=== PATIENT | female | born 1970 | race Caucasian/White ===

== ENCOUNTER 2018-10-15 09:46 | Observation (INO) | payer OTHER ==
[~2018-10-15 09:46] MED LIST: HYDROmorphone 2 MG/ML VIAL IV PRN; IV RINGERS,LACTATED 1000ML 1,000 ML IV SCH; LIDOCAINE 1% PF 2 ML VIAL. ID PRN; MORPHINE SULFATE 2 MG/ML VIAL. IV PRN; ONDANSETRON PF 4 MG/2 ML VIAL. IV PRN; PROCHLORPERAZINE 10 MG/2 ML VIAL. IV PRN; fentaNYL PF VIAL 100 MCG/2 ML VIAL IV PRN
[2018-10-15] MEDS ORDERED: LEVO175T5 PO (10:31)
[2018-10-15] MEDS ORDERED: RANI300C PO (10:32)
[2018-10-15] MEDS ORDERED: GUAI237L83 PO (10:33)
[2018-10-15 11:25] LABS: BASO # 0.1 x10^3/uL (0.0-0.2); BASO % 1 % (0-3); EOS # 0.1 x10^3/uL (0.0-0.7); EOS % 2 % (0-3); HEMATOCRIT 40.5 % (36.0-47.0); HEMOGLOBIN 13.9 g/dL (12.0-15.5); LYMPH # 2.2 x10^3/uL (1.0-4.8); LYMPH % 27 % (24-48); MEAN CORPUSCULAR HEMOGLOBIN 32 pg (25-35); MEAN CORPUSCULAR HGB CONC 34 g/dL (31-37); MEAN CORPUSCULAR VOLUME 94 fL (79-100); MONO # 0.7 x10^3/uL (0.0-1.1); MONO % 9 % (0-9); NEUT # 5.1 x10^3uL (1.8-7.7); NEUT % 62 % (31-73); PLATELET COUNT 260 x10^3/uL (140-400); RED BLOOD COUNT 4.29 x10^6/uL (3.50-5.40); RED CELL DISTRIBUTION WIDTH 13.2 % (11.5-14.5); WHITE BLOOD COUNT 8.3 x10^3/uL (4.0-11.0)
[2018-10-15] MEDS ORDERED: ceFAZolin 2GM PREMIX 2 GM/50 ML BAG IV ONE (12:00)
[2018-10-15] MEDS ORDERED: fentaNYL PF VIAL 100 MCG/2 ML VIAL ONE (12:31)
[2018-10-15] MEDS ORDERED: LIDOCAINE 2% PF 5 ML VIAL. ONE (12:31)
[2018-10-15] MEDS ORDERED: PROPOFOL 20 ML IV ONE ×2 (12:31→14:10)
[2018-10-15] MEDS ORDERED: DEXAMETHASONE SOD PHOS 4 MG/ML VIAL ONE (12:31)
[2018-10-15] MEDS ORDERED: SEVOFLURANE 31 TO 60 MINUTES. IH ONE (12:31)
[2018-10-15] MEDS ORDERED: SEVOFLURANE 61 TO 120 MINUTES. IH ONE (12:31)
[2018-10-15] MEDS ORDERED: MIDAZOLAM HCL/PF 2 MG/2 ML VIAL. ONE (12:31)
[2018-10-15] MEDS ORDERED: KETOROLAC 30 MG/ML INJ FOR OR. INJ ONE (12:32)
[2018-10-15] MEDS ORDERED: ONDANSETRON PF 4 MG/2 ML VIAL. ONE (12:32)
[2018-10-15] MEDS ORDERED: LIDOCAINE 1%/EPI 1:100,000 20 ML VIAL. ONE ×2 (12:43→13:23)
--- NOTE | 2018-10-15 14:54 | PDOC ---
BRIEF OPERATIVE NOTE Date: Oct 15, 2018 Pre-Op Diagnosis 1. DONA 2. Cystocele Post-Op Diagnosis Same Procedure Performed 1. Bladder SLing 2. Anterior COlporrhaphy Surgeon Dr. Laughlin Rice Dryer Mechanic Lidia Anesthesia Type: General Blood Loss 25 ml Specimens Obtained none Findings DONA and cystocele Complications none Operative Note see dictation JIMMIE LAUGHLIN Jr, MD Oct 15, 2018 14:53
--- NOTE | 2018-10-15 14:55 | DISCH ---
DISCHARGE INSTRUCTIONS Condition on Discharge Condition on Discharge: Stable Activity After Discharge Activity Instructions for Disc: Activity as tolerated Lifting Instructions after Dis: No heavy lifting Driving Instructions after Dis: Do not drive today Diet after Discharge Diet after Discharge: Regular Contacting the [facility] after DC Call your doctor for: Concerns you may have Follow-Up Follow up with: Dr. Cr in 2 weeks. JIMMIE CR Jr, MD Oct 15, 2018 14:55
--- NOTE | 2018-10-15 15:07 | OP ---
DATE OF SURGERY: PREOPERATIVE DIAGNOSES: 1. Stress urinary incontinence. 2. Cystocele. POSTOPERATIVE DIAGNOSES: 1. Stress urinary incontinence. 2. Cystocele. PROCEDURE: 1. Bladder sling. 2. Anterior colporrhaphy. SURGEON: Curly Samaniego MD LOGGING OPERATIONS INSPECTOR: First Lesly Murillo. ANESTHESIA: GETA. ESTIMATED BLOOD LOSS: 25 mL. COMPLICATIONS: None. FINDINGS: Stress urinary incontinence and cystocele. SUMMARY: A 47-year-old patient with a long history of stress urinary incontinence. The patient was examined and found to also have cystocele, stage 3. The patient was counseled on benefits, risks and expectations of surgical treatment in the form of suburethral bladder sling and anterior colporrhaphy. She voiced clear understanding to proceed. DESCRIPTION OF PROCEDURE: The patient was taken to surgery suite and placed in dorsal lithotomy position. She was prepped with Betadine solution and draped in a sterile fashion. After adequate anesthesia, a weighted speculum was placed vaginally. Allis clamp was placed 1 cm below the urethral orifice on the anterior vaginal wall mucosa. A second Allis clamp was placed 4 cm below the first Allis clamp. A 1% lidocaine with epinephrine was injected between the 2 Allis clamps as well as in the periurethral space as well as at the insertion points for the trocars in the groin region, which was at the level of the clitoris and where the abductus longus attached to the pubic rami bilaterally. An incision was made for the insertion points as well as between the 2 Allis clamps in a vertical fashion. Metzenbaum scissors utilized to dissect the vaginal wall mucosa off from this away from the fascia. The periurethral space was also dissected with sharp dissection with Metzenbaum scissors as well as blunt dissection all the way to the obturator foramen bilaterally. The Obtryx sling was then placed through the right groin region. The tip of the trocar was guided with the index fingers through the periurethral space. Same process took place with the left trocar. The suburethral sling was then adjusted to a loose fit using size #7 Hegar dilator. Cystoscopy was performed in which the bladder was normal in appearance. The urethrovesical junction is functioning normally. There was no evidence of bladder perforation or injury. The cystoscope was then removed. The exposed mesh at the groin region was excised using Metzenbaum suture scissors. We then proceeded with anterior colporrhaphy in which the pubovesical fascia was reapproximated using 2-0 Vicryl suture in an interrupted fashion. The excess anterior vaginal mucosa was excised using Metzenbaum scissors. The remaining anterior vaginal wall mucosa was reapproximated using 2-0 Vicryl suture in a [id number] manner. Cesar catheter was placed, which elicited moderate amount of clear fluid. Dermabond was utilized to reapproximate the groin incisions. The patient tolerated the procedure well and was sent to recovery room in stable condition. Sponge and needle count correct x 3. CURLY SAMANIEGO MD DR: DEEDEE/nts JOB#: [id number] / [id number]
[2018-10-15 15:45] VITALS: BP 96/59
[2018-10-15 16:00] VITALS: BP 102/55
[2018-10-15 16:15] VITALS: BP 105/64
[2018-10-15 16:30] VITALS: BP 109/72
[2018-10-15 17:00] VITALS: BP 104/72
--- NOTE | 2018-10-15 17:30 | NUR ---
Bladder filled with 300 ml sterile water for bladder challenge, Cesar dc'd, up to BR, unable to void, up to walk
--- NOTE | 2018-10-15 17:45 | NUR ---
Phone call to Dr. Laughlin, reported failed bladder challenge, order received
[2018-10-15] MEDS ORDERED: OPIUM/BELLADONNA 30/16.2MG SUPP.RECT. PR PRN (18:30)
[2018-10-15] MEDS ORDERED: ZOLPIDEM 5 MG TABLET. PO PRN (18:30)
[2018-10-15 20:15] VITALS: BP 107/64
--- NOTE | 2018-10-15 20:50 | NUR ---
Patient left the unit for "fresh air" and to go to the vending machine at approximately 2029. Call received from security at 2044 that patient had left the premises with her friend in her automobile. Charge nurse, Dr. Laughlin and Nursing sorority supervisor notified. Dr. Laughlin states if she returns she needs to be readmitted through the emergency room for leaving A.M.A.
--- NOTE | 2018-10-15 20:55 | NUR ---
Patient returned to unit. Escorted by security back to emergency room for readmission.
[2018-10-16] MEDS ORDERED: IBUP-1060 PO (09:07)
[2018-10-16] MEDS ORDERED: GABA300C18 PO (09:07)
== END 2018-10-15 20:40 | disposition left against medical advice (07) ==
LOC: SURG 09:46 → 3 NORTH 15:23
PROVIDERS: ADMIT Obstetrics & Gynecology; ATTEND Obstetrics & Gynecology
DX: N39.3 Stress incontinence (female) (male) (principal); E03.9 Hypothyroidism, unspecified; N81.4 Uterovaginal prolapse, unspecified; Z90.710 Acquired absence of both cervix and uterus
CPT/HCPCS: 36415; 57240; 57288; 85025; 86850; 86900; 86901; G0378; G0379; J0696; J1100; J1885; J2001; J2250; J2405; J2704; J3010; J3490; J7030; J7120; C1771

== ENCOUNTER 2018-10-15 21:04 | Observation (INO) | payer OTHER ==
[~2018-10-15] VITALS: Ht 175.3 cm; Wt 95.3 kg
[~2018-10-15 21:04] MED LIST changes: +GUAI237L83 PO; -HYDROmorphone 2 MG/ML VIAL IV PRN; -IV RINGERS,LACTATED 1000ML 1,000 ML IV SCH; +LEVO175T5 PO; -LIDOCAINE 1% PF 2 ML VIAL. ID PRN; -MORPHINE SULFATE 2 MG/ML VIAL. IV PRN; -ONDANSETRON PF 4 MG/2 ML VIAL. IV PRN; -PROCHLORPERAZINE 10 MG/2 ML VIAL. IV PRN; +RANI300C PO; -fentaNYL PF VIAL 100 MCG/2 ML VIAL IV PRN
--- NOTE | 2018-10-15 21:20 | PHYS DOC ---
Past Medical History Past Medical History: GERD, Hypothyroid (GARTH WINTERS DO) Past Surgical History: Hysterectomy, Tonsillectomy Additional Past Surgical Histo: Cystocele repair, R knee (GARTH WINTERS DO) Smoking: Cigarettes Alcohol Use: Occasionally Drug Use: None (GARTH WINTERS DO) Adult General Chief Complaint Chief Complaint: POST-OP PROBLEM HPI HPI Patient is a 47 year old female presents to the ED for readmission. Patient was admitted upstairs after surgery today and left the hospital to go and smoke. Patient was gone for 10 minutes. Patient was admitted by Dr. Samaniego. Patient came back to the ED for admission to the hospital to go back to her room. Discussed case with Dr. Samaniego. States he wanted a UDS ordered, no IV, and wants her observed for 24 hours. Patient has catheter in place. Patient had a cystocele and stress urinary incontinence. Patient complains of no new or worsening symptoms. Denies drug use. (MELODY BEYER) Review of Systems Review of Systems Constitutional: Denies fever or chills [] Eyes: Denies change in visual acuity, redness, or eye pain [] HENT: Denies nasal congestion or sore throat [] Respiratory: Denies cough or shortness of breath [] Cardiovascular: No additional information not addressed in HPI [] GI: Denies abdominal pain, nausea, vomiting, bloody stools or diarrhea [] : Denies dysuria or hematuria [] Musculoskeletal: Denies back pain or joint pain [] Integument: Denies rash or skin lesions [] Neurologic: Denies headache, focal weakness or sensory changes [] All other systems were reviewed and found to be within normal limits, except as documented in this note. (MELODY BEYER) Allergies Allergies Allergies Coded Allergies Type Severity Reaction Last Updated Verified No Known Drug Allergies 10/13/18 No (GARTH WINTERS DO) Physical Exam Physical Exam Constitutional: Well developed, well nourished, no acute distress, non-toxic appearance. [] HENT: Normocephalic, atraumatic Skin: Warm, dry, no erythema, no rash. [] Back: No tenderness, no CVA tenderness. [] Extremities: No tenderness, no cyanosis, no clubbing, ROM intact, no edema. [] Neurologic: Alert and oriented X 3, normal motor function, normal sensory function, no focal deficits noted. [] Psychologic: Affect normal, judgement normal, mood normal. [] (MELDOY BEYER) EKG EKG [] (MELODY BEYER) Radiology/Procedures Radiology/Procedures [] (MELODY BEYER) Course & Med Decision Making Course & Med Decision Making Pertinent Labs and Imaging studies reviewed. (See chart for details) []Will admit to Dr. Samaniego with his instructions; No IV, UDS ordered and plan for 24 hour observation. (MELODY BEYER) Dragon Disclaimer Dragon Disclaimer This electronic medical record was generated, in whole or in part, using a voice recognition dictation system. (MELODY BEYER) Departure Departure Impression: Primary Impression: Cystocele Additional Impression: DONA (stress urinary incontinence, female) Disposition: ADMITTED INPATIENT Condition: STABLE Referrals: UNKNOWN PCP NAME (PCP) Scripts Gabapentin (GABAPENTIN ) 300 Mg Capsule 300 MG PO TID for NEUROGENIC PAIN, #30 CAP 1 Refill Prov: JIMMIE SAMANIEGO Jr, MD 10/16/18 Ibuprofen (IBUPROFEN) 800 Mg Tablet 800 MG PO PRN Q6HRS PRN for INFLAMMATION, #30 TAB 1 Refill Prov: JIMMIE SAMANIEGO Jr, MD 10/16/18 Attending Signature Attending Signature I have reviewed the PA/PAROLE HEARING OFFICER's note and plan of care. I was available for consultation as needed during the patient's visit in the emergency department. I agree with the clinical impression, plan, and disposition. (GARTH WINTERS DO) Problem Qualifiers MELODY BEYER Oct 15, 2018 21:20 GARTH WINTERS DO Oct 19, 2018 16:06
[2018-10-15] MEDS ORDERED: ACETAMINOPHEN 325 MG TABLET. PO PRN (21:30)
[2018-10-15] MEDS ORDERED: ONDANSETRON PF 4 MG/2 ML VIAL. IV PRN (21:30)
[2018-10-15 22:00] VITALS: BP 113/63
[2018-10-15 23:32] LABS: BARBITURATES NEG (NEG); BENZODIAZEPINES POS (NEG); CANNABINOIDS NEG (NEG); COCAINE NEG (NEG); METHADONE NEG (NEG); OPIATES NEG (NEG); PHENCYCLIDINE NEG (NEG)
[2018-10-15 23:34] LABS: AMPHETAMINE/METHAMPHETAMINE NEG (NEG)
--- NOTE | 2018-10-16 09:05 | PDOC1 ---
History and Physical Date of Admission Date of Admission DATE: 10/16/18 TIME: 08:58 Identification/Chief Complaint Chief Complaint bladder spasms Source Source: Chart review, Patient History of Present Illness History of Present Illness 47 y/o s/p anterior colporrhaphy and bladder sling POD#0 presented to ED for re- admission. Pt. left the hospital property against medical advice and against medical knowledge. Pt. was re-admitted through ED because of unknown interaction off hospital property. UDS was negative except medication given for surgery. Pt. had bladder challenge this am and will d/c home without armstrong cath. Past Surgical History Past Surgical History: Hysterectomy, Other (bladder sling and anterior colporrhaphy) Current Medications Current Medications Current Medications Ondansetron HCl (Zofran) 4 mg PRN Q8HRS PRN IV NAUSEA/VOMITING; Start 10/15/18 at 21:30; Stop 10/16/18 at 21:29 Acetaminophen (Tylenol) 650 mg PRN Q4HRS PRN PO FEVER Last administered on 10/16/18at 06:05; Start 10/15/18 at 21:30; Stop 10/16/18 at 21:29 Active Scripts Active Reported Robitussin Cough-Chest Dm Liq (Guaifenesin/Dextromethorphan) 237 Ml Liquid 237 Ml PO BID Ranitidine Hcl 300 Mg Capsule 1 Cap PO DAILY Levothyroxine Sodium 175 Mcg Tablet 188 Mcg PO DAILYAC Allergies Allergies: Coded Allergies: No Known Drug Allergies (Unverified , 10/13/18) ROS General: No: Chills, Night Sweats, Fatigue, Malaise, Appetite, Other PSYCHOLOGICAL ROS: YES: Anxiety; No: Behavioral Disorder, Concentration difficultie, Decreased libido, Depression, Disorientation, Hallucinations, Hostility, Irritablity, Memory difficulties, Mood Swings, Obsessive thoughts, Physical abuse, Sexual abuse, Sleep disturbances, Suicidal ideation, Other Eyes: No Blurry vision, No Decreased vision, No Double vision, No Dry eyes, No Excessive tearing, No Eye Pain, No Itchy Eyes, No Loss of vision, No Photophobia, No Scotomata, No Uses contacts, No Uses glasses, No Other HEENT: No: Heacaches, Visual Changes, Hearing change, Nasal congestion, Nasal discharge, Oral lesions, Sinus pain, Sore Throat, Epistaxis, Sneezing, Snoring, Tinnitus, Vertigo, Vocal changes, Other ALLERGY AND IMMUNOLOGY: No: Hives, Insect Bite Sensitivity, Itchy/Watery Eyes, Nasal Congestion, Post Nasal Drip, Seasonal Allergies, Other Hematological and Lymphatic: No: Bleeding Problems, Blood Clots, Blood Transfusions, Brusing, Night Sweats, Pallor, Swollen Lymph Nodes, Other ENDOCRINE: No: Breast Changes, Galactorrhea, Hair Pattern Changes, Hot Flashes, Malaise/lethargy, Mood Swings, Palpitations, Polydipsia/polyuria, Skin Changes, Temperature Intolerance, Unexpected Weight Changes, Other Respiratory: No: Cough, Hemoptysis, Orthopnea, Pleuritic Pain, Shortness of breath, SOB with excertion, Sputum Changes, Stridor, Tachypnea, Wheezing, Other Cardiovascular: No Chest Pain, No Palpitations, No Orthopnea, No Paroxysmal Noc. Dyspnea, No Edema, No Lt Headedness, No Other Gastrointestinal: No Nausea, No Vomiting, No Abdominal Pain, No Diarrhea, No Constipation, No Melena, No Hematochezia, No Other Skin: No Dry Skin, No Eczema, No Hair Changes, No Lumps, No Mole Changes, No Mottling, No Nail Changes, No Pruritus, No Rash, No Skin Lesion Changes, No Other, No Acne Physical Exam General: Alert, Oriented X3, Cooperative HEENT: Atraumatic Lungs: Clear to auscultation Heart: S1S2 Breasts: Normal Abdomen: Normal bowel sounds, Soft, No tenderness, No masses Psych/Mental Status: Mental status NL Vitals Vitals Vital Signs Date Time Temp Pulse Resp B/P (MAP) Pulse Ox O2 Delivery O2 Flow Rate FiO2 10/15/18 22:00 97.8 79 18 113/63 (80) 98 Room Air 97.8 Labs Labs Laboratory Tests Test 10/15/18 23:17 Urine Opiates Screen Neg (NEG) Urine Methadone Screen Neg (NEG) Urine Barbiturates Neg (NEG) Urine Phencyclidine Screen Neg (NEG) Urine Amphetamine/Methamphetamine Neg (NEG) Urine Benzodiazepines Screen Pos (NEG) Urine Cocaine Screen Neg (NEG) Urine Cannabinoids Screen Neg (NEG) Urine Ethyl Alcohol Neg (NEG) Laboratory Tests Test 10/15/18 23:17 Urine Opiates Screen Neg (NEG) Urine Methadone Screen Neg (NEG) Urine Barbiturates Neg (NEG) Urine Phencyclidine Screen Neg (NEG) Urine Amphetamine/Methamphetamine Neg (NEG) Urine Benzodiazepines Screen Pos (NEG) Urine Cocaine Screen Neg (NEG) Urine Cannabinoids Screen Neg (NEG) Urine Ethyl Alcohol Neg (NEG) VTE Prophylaxis Ordered VTE Prophylaxis Devices: No VTE Pharmacological Prophylaxi: No Assessment/Plan Assessment/Plan A: POD#1 s/p anterior colporrhaphy and bladder sling P: D/c home. JIMMIE SAMANIEGO Jr, MD Oct 16, 2018 09:05
[2018-10-16] MEDS ORDERED: GABA300C18 PO (09:07)
[2018-10-16] MEDS ORDERED: IBUP-1060 PO (09:07)
--- NOTE | 2018-10-16 09:07 | DISCH ---
DISCHARGE INSTRUCTIONS Condition on Discharge Condition on Discharge: Stable Activity After Discharge Activity Instructions for Disc: Activity as tolerated Lifting Instructions after Dis: No heavy lifting Driving Instructions after Dis: Do not drive today Diet after Discharge Diet after Discharge: Regular Contacting the [facility] after DC Call your doctor for: Concerns you may have Follow-Up Follow up with: Dr. Laughlin in 1 week. JIMMIE LAUGHLIN Jr, MD Oct 16, 2018 09:07
== END 2018-10-16 09:30 | disposition home or self-care (01) ==
LOC: ER 21:04 → INTOOBSV 21:20 → 3 NORTH 21:20
PROVIDERS: ADMIT Obstetrics & Gynecology; ATTEND Obstetrics & Gynecology
DX: N81.10 Cystocele, unspecified (principal); N39.3 Stress incontinence (female) (male); E03.9 Hypothyroidism, unspecified; K21.9 Gastro-esophageal reflux disease without esophagitis; F17.210 Nicotine dependence, cigarettes, uncomplicated; Z90.710 Acquired absence of both cervix and uterus
CPT/HCPCS: 80307; 99284; G0378; G0379; 99285-25